=== PATIENT | male | born 1940 | race Caucasian/White ===

== ENCOUNTER → 2016-02-28 | Outpatient (CLI) | payer OTHER ==
[~2016-02-28] MED LIST: ACTOS 30 MG TAB30 M1 PO; BAYER CHEWABLE81 MG PO; DIOVAN 80 MG TA80 M1 PO; LEVEMIR SUBQ; LIPITOR40 MG PO; METFORMIN HCL500 MG PO; NORCO 5-325 TA1 EACH PO; NORVASC5 MG PO; TOPROL XL25 MG PO
--- NOTE | ~2016-02-28 | 2DMMODE ---
[facility] [employer] [place] [address] 2 D/M-MODE ECHOCARDIOGRAM Name: MASSIEL OZUNA Room #: REG Ruben#: [id number] Admission: 02/28/16 Attend Phys: Reno Hardin MD Discharge: Date of : 36 Date of Service: 02/28/16 1030 Report #: [id number] THIS REPORT FOR: //name// Transthoracic Echocardiography Ordering physician: Reno Hardin MD Referring physician: Cindy King MD [employer] Machine Operator: ROHIT Newman Indications/History: DM, HTN, HLP, CAD. BP: 132 / HR: 50bpm Height: 71in Weight: 177.6lb 72 Study data: M-mode, complete 2D, complete spectral Doppler, and color Doppler. Location: Echo laboratory. Routine. Image quality was good. 2D measurements Normal Normal LVID ED 51.5mm 36-57 IVS ED 11.4mm 6-11 LVID ES 35.3mm 23-40 LVPW ED 10.3mm 6-11 LA volume 23ml/m2 16-28 AoRoot diam 31.2mm 21-37 index ED LVOT diameter 25mm 18-23 Findings: Left ventricle: The cavity size was normal. Wall thickness was normal. Systolic function was normal. The estimated ejection fraction was in the range of 55% to 60%. Wall motion was normal. Right ventricle: The cavity size was normal. Systolic function was normal. Right atrium: The atrium was normal in size. Left atrium: The atrium was normal in size. Volume index: 23ml/m2 (S). Aortic valve: Trileaflet; mildly calcified leaflets. Doppler: There was no stenosis. No regurgitation. Peak velocity: 121.7cm/s (S). [address] [address] 2 D/M-MODE ECHOCARDIOGRAM Name: MASSIEL OZUNA Room #: REG [facility]#: [id number] Admission: 02/28/16 Attend Phys: Reno Hardin MD Discharge: Date of : 36 Date of Service: 02/28/16 1030 Report #: [id number] Mitral valve: Mildly calcified annulus. Doppler: There was no evidence for stenosis. Mild regurgitation. Peak E-wave velocity: 75.1cm/s. Peak gradient: 2.3mm Hg (D). Peak A-wave velocity: 89.1cm/s. Tricuspid valve: Structurally normal valve. Doppler: There was no evidence for stenosis. No regurgitation. Pulmonic valve: Structurally normal valve. Doppler: There was no evidence for stenosis. No regurgitation. Pericardium: There was no pericardial effusion. Aorta: Aortic root: The aortic root was normal in size. Pulmonary artery: Pressure could not be reliably determined due to minimal or absent tricuspid insufficiency jet, but pulmonary hypertension was not suggested. Diastolic function: Doppler parameters are consistent with abnormal left ventricular relaxation (grade 1 diastolic dysfunction). Systemic veins: Inferior vena cava: The vessel was normal in size; the respirophasic diameter changes were in the normal range (= 50%). Conclusions 1. Left ventricle: The cavity size was normal. Wall thickness was normal. Systolic function was normal. The estimated ejection fraction was in the range of 55% to 60%. 2. Right atrium: The atrium was normal in size. 3. Left atrium: The atrium was normal in size. 4. Aortic valve: Trileaflet; mildly calcified leaflets. There was no stenosis. 5. Mitral valve: Mildly calcified annulus. Mild regurgitation. 6. Pericardium, extracardiac: There was no pericardial effusion. <ELECTRONICALLY SIGNED> By: Reno Hardin MD 02/28/16 1236 1030 1236 Reno Hardin MD /nic
== END ==
LOC: CV 10:07
DX: I25.10 Atherosclerotic heart disease of native coronary artery without angina pectoris (principal); E78.5 Hyperlipidemia, unspecified; I10 Essential (primary) hypertension; E11.9 Type 2 diabetes mellitus without complications; I34.0 Nonrheumatic mitral (valve) insufficiency